=== PATIENT | female | born 1970 ===

== ENCOUNTER 2021-02-04 10:45 | Inpatient (IN) | payer OTHER ==
[~2021-02-04] VITALS: Ht 170.2 cm; Wt 93.0 kg
[2021-02-04] MEDS ORDERED: TENORMIN25 MG PO (12:51)
[2021-02-04] MEDS ORDERED: VERAPA PO (12:52)
[2021-02-10] MEDS ORDERED: MEGESTROL ACETA20 MG (14:25)
[2021-02-10] MEDS ORDERED: VERAPAMIL HCL80 MG PO (14:26)
[2021-02-12] MEDS ORDERED: TRAMADOL HCL50 MG PO (07:20)
== END 2021-02-12 09:44 | disposition home or self-care (01) | DRG 743 ==
LOC: SURG 02-10 08:22 → O/R 02-10 08:22 → OB/GYN 02-10 10:45 → SURG 02-10 13:23
PROVIDERS: ADMIT Obstetrics & Gynecology Gynecology; ATTEND Obstetrics & Gynecology Gynecology
PROC: 0UB70ZX Excision of Bilateral Fallopian Tubes, Open Approach, Diagnostic (ICD-10-PCS; 2021-02-10)
PROC: 0UT90ZZ Resection of Uterus, Open Approach (ICD-10-PCS; principal; 2021-02-10 11:30)
DX: D25.1 Intramural leiomyoma of uterus (principal); N80.0 Endometriosis of uterus; N92.0 Excessive and frequent menstruation with regular cycle; N72 Inflammatory disease of cervix uteri; Z20.822 Contact with and (suspected) exposure to COVID-19; I10 Essential (primary) hypertension